=== PATIENT | male | born 1965 | race Caucasian/White ===

== ENCOUNTER 2019-09-23 10:15 | Inpatient (IN) ==
--- NOTE | 2019-09-07 15:47 | PAT Medication Instructions ---
Medication Instructions Date of Service September 07, 2019 Home Medications Taylor Extract 1,200 mg PO QAM acetaminophen [Tylenol] 325 mg PO QID PRN cetirizine [Allergy Relief (cetirizine)] 10 mg PO QAM dexlansoprazole [Dexilant] 60 mg PO QAM levothyroxine 125 mcg PO QAM STOP taking 2 weeks before surgery (or as soon as possible if surgery is within 2 weeks) Taylor Extract 1,200 mg PO QAM DO NOT take the morning of surgery cetirizine [Allergy Relief (cetirizine)] 10 mg PO QAM Take morning of surgery With a small sip of water, OTHERWISE NOTHING TO EAT OR DRINK AFTER MIDNIGHT: acetaminophen [Tylenol] 325 mg PO QID PRN (okay to take up to 4 hours prior to surgery if needed) dexlansoprazole [Dexilant] 60 mg PO QAM levothyroxine 125 mcg PO QAM Take evening before surgery acetaminophen [Tylenol] 325 mg PO QID PRN (if needed) Other Notes If you have any questions please call us at [phone] or [phone] or [phone] or [phone]
--- NOTE | 2019-09-08 09:45 | Anesthesiology Consultation ---
Date of Service September 08, 2019 Assessment & Plan (1) Encounter for pre-operative examination: S/P L shoulder scope 2015 [facility] = MAC 4, ETT 8.0, GV II. EZ MASK. Chart Review Chart Review: Acceptable Risk for Surgery (pending surgeon-ordered PCP clearance) and Patient seen in Pre Admission Testing Teaching & Discussion Instructed NPO after midnight before surgery, except medications with 15 cc of water. Medication instructions provided according to the PAT guidelines. History Surgery Operation Date: 09/23/19 07:00 Proposed Procedures p Right Total Shoulder Arthroplasty - Cullen Lopes MD Height/Weight Height: 6 ft 1 in Weight: 168.9 kg Allergies Allergy/AdvReac Type Severity Reaction Status Date / Time No Known Allergies Allergy Unverified 09/01/19 08:27 Medications Home Medications Medication Instructions Recorded Confirmed Last Taken Taylor Extract 1,200 mg PO QAM 09/01/19 09/01/19 Unknown acetaminophen [Tylenol] 325 mg PO QID PRN 09/01/19 09/01/19 Unknown cetirizine [Allergy Relief 10 mg PO QAM 09/01/19 09/01/19 Unknown (cetirizine)] dexlansoprazole [Dexilant] 60 mg PO QAM 09/01/19 09/01/19 Unknown levothyroxine 125 mcg PO QAM 09/01/19 09/01/19 Unknown Past Medical History Medical History GERD (gastroesophageal reflux disease) Gout HX OF IN BIG TOE Hypothyroidism Morbid obesity Osteoarthritis Sleep apnea CPAP - INSTRUCTED TO BRING Exercise / Class Metabolic Activity II 4-5 Yardwork/Stairs/Walk up hill (denies CP or SOB with 1 FOS) Past Surgical History Surgical History History of arthroplasty of left shoulder PARTIAL REPLACEMENT 2015 History of arthroscopy of left shoulder Hx of appendectomy Hx of esophagogastroduodenoscopy Hx of tonsillectomy Past Anesthesia History No Hx of Anesthesia Complications and No Family Hx of Anesthesia Complications History of PONV No Hx of PONV and Hx of Motion Sickness (sea sick, but no car sickness) Social History Smoking Status: Never smoker Do You Dip or Chew Tobacco: No Hx Alcohol Use: No Hx Substance Use: No substance use type: does not use Review of Systems Pt denies any recent chest pain, shortness of breath, palpitations, fever or URI. +occ mild nonproductive cough Physical Exam Vital Signs BP: 142/93 (has PTSD around hospitals) P: 72bpm SPO2: 95% RA T: 97.8 F R: 16 Constitutional + morbidly obese ENMT Mouth: + dental restorations (possibly one molar, pt unsure); no chipped teeth and no loose teeth Thyromental Distance: > or= 3.5 Finger Breadths (3.5) Mallampati Class: II Neck + short neck, + thick neck and + facial hair (very short jason, pt amenable to shaving prior to surgery); neck extension not limited Respiratory normal respiratory effort Auscultation: lungs clear to auscultation bilaterally Cardiovascular Rate/Rhythm: regular rate and regular rhythm Heart Sounds: no murmur Extremities: no edema Testing Laboratory Results 09/08/19 09:55 09/08/19 09:55 PT 10.5 Seconds (9.0-12.0) 09/08/19 09:55 INR 1.0 (0.9-1.1) 09/08/19 09:55 APTT 27.0 Seconds (21.0-31.0) 09/08/19 09:55 Hemoglobin A1c 6.0 % (4.5-5.6) H 09/08/19 09:55 Urine Color Yellow 09/08/19 09:55 Urine Appearance Clear (Clear) 09/08/19 09:55 Urine pH 5.5 (4.5-7.5) 09/08/19 09:55 Ur Specific Hudson 1.022 (1.000-1.030) 09/08/19 09:55 Urine Protein Trace (Negative) H 09/08/19 09:55 Urine Glucose (UA) Negative (Negative) 09/08/19 09:55 Urine Ketones Negative (Negative) 09/08/19 09:55 Urine Nitrite Negative (Negative) 09/08/19 09:55 Ur Leukocyte Esterase Negative (Negative) 09/08/19 09:55 Urine WBC (Auto) 1-5 /hpf (0-5) 09/08/19 09:55 Urine RBC (Auto) 0-4 /hpf (0-4) 09/08/19 09:55 U Hyaline Cast (Auto) 1-5 /lpf (0-5) 09/08/19 09:55 U Epithel Cells (Auto) >30 /lpf (0-5) H 09/08/19 09:55 Urine Bacteria (Auto) 1+ (Negative) H 09/08/19 09:55 Blood Type B Positive 09/08/19 09:55 Antibody Screen NEGATIVE 09/08/19 09:55 Electrocardiogram Date: 09/08/19 Findings: + NSR @ (75bpm) Chest X-Ray Date: 09/08/19 Findings: + NAD
--- NOTE | 2019-09-08 10:33 | XRay Report ---
XR chest Pre-admission PA/Lat CLINICAL HISTORY: pat preoperative COMPARISON STUDY: 04/17/2016 FINDINGS: The bones soft tissues and hemidiaphragms are normal. The cardiomediastinal silhouette is n ormal. The lungs are clear. The pulmonary vasculature is normal. IMPRESSION: Negative chest. ACT 112: Negative or not required by law. The above report was generated using voice recognition software. It may contain grammatical, syntax or spelling errors. Electronically signed by: Ayden Vázquez M.D. 09/08/2019 10:32 AM
[2019-09-08 12:00] LABS: Basophils # (auto) 0.02 K/uL (0-0.2); Basophils % (auto) 0.2 %; Eosinophils # (auto) 0.13 K/uL (0-0.5); Eosinophils % (auto) 1.5 %; Hematocrit (blood only) 48.6 % (42-52); Hemoglobin 16.2 g/dL (14.0-18.0); Immature Granulocytes # (auto) 0.01 K/uL (0.00-0.02); Immature Granulocytes % (auto) 0.1 %; Lymphocytes # (auto) 2.78 K/uL (1.2-3.4); Lymphocytes % (auto) 32.7 %; Mean Corpuscular Hemoglobin 30.2 pg (25-34); Mean Corpuscular Hgb Conc 33.3 g/dL (32-36); Mean Corpuscular Volume 90.7 fL (80-100); Monocytes # (auto) 0.58 K/uL (0.11-0.59); Monocytes % (auto) 6.8 %; Neutrophils # (auto) 4.97 K/uL (1.4-6.5); Neutrophils % (auto) 58.7 %; Platelet Count 211 K/uL (130-400); RDW Coefficient of Variation 14.3 % (11.5-14.5); RDW Standard Deviation 47.1 fL (36.4-46.3); Red Blood Count 5.36 M/uL (4.7-6.1); White Blood Count 8.49 K/uL (4.8-10.8)
[2019-09-08 12:03] LABS: Estimated Average Glucose 126 mg/dl
[2019-09-08 12:04] LABS: Appearance Urine Clear (Clear); Bacteria Urine Automated 1+ (Negative); Bilirubin Urine Negative (Negative); Blood Urine Negative (Negative); Color Urine Yellow; Epithelial Cell Urine Auto >30 /lpf (0-5); Glucose Urine UA Negative (Negative); Ketones Urine Negative (Negative); Leukocyte Esterase Urine Negative (Negative); Nitrite Urine Negative (Negative); Protein Urine Trace (Negative); RBC Urine Automated 0-4 /hpf (0-4); Specific Gravity Urine 1.022 (1.000-1.030); Urobilinogen Urine Negative (Negative); pH Urine 5.5 (4.5-7.5)
[2019-09-08 12:17] LABS: Prothrombin Time 10.5 Seconds (9.0-12.0)
[2019-09-08 12:20] LABS: Albumin Level 3.9 gm/dl (3.4-5.0); BUN Creatinine Ratio 18.5 (10-20); Calcium 9.2 mg/dl (8.5-10.1); Creatinine Clr Calc Pharmacy 145.2 ml/min; Est GFR (African American) 104.8; Est GFR (Non-African American) 90.4; Potassium 4.6 mmol/L (3.5-5.1)
--- NOTE | 2019-09-08 15:01 | Electrocardiogram Report ---
Test Reason : Blood Pressure : / mmHG Vent. Rate : 075 BPM Atrial Rate : 075 BPM P-R Int : 152 ms QRS Dur : 100 ms QT Int : 420 ms P-R-T Axes : 033 069 043 degrees QTc Int : 469 ms Normal sinus rhythm Normal ECG When compared with ECG of 17-APR-2016 14:50, No significant change was found Confirmed by Gamaliel Brown ([id number]) on 09/08/2019 3:01:07 PM Referred By: Cullen Lopes Confirmed By:Cody Brown
--- NOTE | 2019-09-22 15:20 | History and Physical Report ---
DATE OF ADMISSION: 09/23/2019 CHIEF COMPLAINT: Chronic right shoulder pain. HISTORY OF PRESENT ILLNESS: The patient is a 53-year-old male patient of Dr. Lopes'elia complaining of chronic right shoulder pain for approximately 3 years, now getting worse. The patient has failed conservative treatment and has been diagnosed with end-stage osteoarthritis per clinical and radiographic exams. The patient wishes to proceed with a right total shoulder arthroplasty. PAST MEDICAL HISTORY: Sleep apnea with the use of CPAP, hypothyroidism, acid reflux, obesity. SOCIAL HISTORY: Nonsmoker, nondrinker. PAST SURGICAL HISTORY: Left shoulder hemiarthroplasty, appendectomy, left shoulder arthroscopy. FAMILY HISTORY: Noncontributory. REVIEW OF SYSTEMS: Chronic right shoulder pain and decreased function. Otherwise, denies any shortness of breath, chest pain, nausea, vomiting or any other joint complaints. MEDICATIONS: 1. Synthroid 125 mcg daily. 2. Dexilant 1 capsule every day for 8 weeks. 3. Zyrtec 10 mg daily. ALLERGIES: No known drug allergies. PHYSICAL EXAMINATION: GENERAL: Well-developed, well-nourished 53-year-old male in no acute distress. He is alert and oriented x3 and pleasant. HEENT: Normocephalic, atraumatic. Extraocular motions are intact. Pupils are equal and reactive to light. HEART: Regular rate and rhythm, no murmurs. LUNGS: Clear. ABDOMEN: Soft, nontender, bowel sounds present. EXTREMITIES: Right shoulder active range of motion was 0-160, passively to 170. He has 5/5 strength with crepitation and pain. Neurologically and neurovascularly, he is intact in his right upper extremity. DIAGNOSES: Right shoulder end-stage osteoarthritis, sleep apnea with the use of CPAP, hypothyroidism, acid reflux, and obesity. PLAN: The patient was advised of his diagnosis. Indications, risks, benefits, postop course have all been reviewed. The patient wished to proceed with right total shoulder arthroplasty. Necessary consent forms, preoperative testing and clearances will be obtained.
[~2019-09-23 10:15] MED LIST: ACETAMINOPHEN 500 MG TAB PO SCH; BUPIVACAINE/EPINEPHRINE 0.25% 1:200,000 30 ML VIAL ONE; CEFAZOLIN 3000MG 72.5 ML IV SCH; CeleBREX 200 MG CAP PO SCH; FAMOTIDINE 20 MG TAB PO SCH; GABAPENTIN 900 MG DOSE PO SCH; LR 15ML/HR IV SCH; METOCLOPRAMIDE HCL 10 MG TABLET PO SCH; MIDAZOLAM HCL 1 MG/ML 2ML VIAL ONE; dexAMETHasone 4 MG TAB PO SCH; fentaNYL citrate 100 MCG/2 ML VIAL ONE
--- NOTE | 2019-09-23 10:33 | History & Physical Bridge Note ---
Date of Service September 23, 2019 History & Physical Bridge Note I have examined the patient, reviewed the History & Physical and in the interval since the performance of the History & Physical I have noted the following changes of clinical significance: no changes noted
[2019-09-23] MEDS ORDERED: PROPOFOL IV EMULSION 10 MG/ML 20 ML VIAL IV ONE (11:00)
[2019-09-23] MEDS ORDERED: ROCURONIUM BROMIDE 10 MG/ML 5 ML VIAL ONE ×3 (11:01→13:12)
[2019-09-23] MEDS ORDERED: LIDOCAINE HCL 2% 2 ML VIAL/AMP(20MG/ML) INFIL ONE (11:01)
[2019-09-23] MEDS ORDERED: EpINEphrine HCL INJ 1 MG/ML 1ML SYRINGE ONE (11:01)
[2019-09-23] MEDS ORDERED: BACITRACIN INJ 50,000 UNIT VIAL ONE (11:01)
[2019-09-23] MEDS ORDERED: ePHEDrine sulfate 50 MG/ML AMP IV PRN (11:09)
[2019-09-23] MEDS ORDERED: HYDROmorphone INJ 2 MG/ML SYR/VIAL IV PRN (11:09)
[2019-09-23] MEDS ORDERED: ATROPINE SULFATE 0.1 MG/ML 10ML SYR IV PRN (11:09)
[2019-09-23] MEDS ORDERED: ONDANSETRON INJ 2 MG/ML 2 ML VIAL IV PRN ×2 (11:09→17:05)
[2019-09-23] MEDS ORDERED: fentaNYL citrate 100 MCG/2 ML VIAL IV PRN (11:09)
[2019-09-23] MEDS ORDERED: GLYCOPYRROLATE 0.2 MG/ML VIAL ONE (15:29)
[2019-09-23] MEDS ORDERED: NEOSTIGMINE METHYLSULFATE 5 MG/5 ML SYR ONE (15:29)
--- NOTE | 2019-09-23 15:55 | Post Operative Brief Note ---
Immediate Post Op Note v1 Date of Surgery September 23, 2019 Pre & Post Diagnosis Operation Date: 09/23/19 12:50 Pre-Op Diagnosis: Primary Osteoarthritis, glenoid bone loss, right Shoulder, morbid obesity BMI 48.8 Post-Op Diagnosis: Primary Osteoarthritis, Right Shoulder biceps tendinopathy, and biceps tenosynovitis, morbid obesity BMI 48.8 I identified the patient and participated in the time-out.: Yes Procedure Operation Date: 09/23/19 12:50 Actual Procedures p Right Total Shoulder Arthroplasty, biceps tenodesis(Right), increased difficulty morbid obesity BMI 48.8- Cullen Lopes MD Surgeon Cullen Lopes MD Stacker And Sorter Operator [place] HILL Estimated Blood Loss 100 Findings Consistent with Post-Op Diagnosis Specimens Humeral head Drains Hemovac Drain Anesthesia Type General Regional Complications none Disposition Accompanied Patient To Recovery: No Disposition: Recovery Room Overlapping Procedure I was immediately available: during the entire case.
--- NOTE | 2019-09-23 16:16 | Operative Report ---
Post Operative Report Pre & Post Diagnosis Operation Date: 09/23/19 12:50 Pre-Op Diagnosis: Primary Osteoarthritis with glenoid bone loss right Shoulder, morbid obesity BMI 48.8 Post-Op Diagnosis: Primary Osteoarthritis with glenoid bone loss right Shoulder, morbid obesity BMI 48.8, Right biceps tendinopathy and tenosynovitis I identified the patient and participated in the time-out.: Yes Procedure Operation Date: 09/23/19 12:50 Actual Procedures p Right Total Shoulder Arthroplasty, biceps tenodesis, increased difficulty morbid obesity BMI 48.8 (Right) - Cullen Lopes MD Surgeon Cullen Lopes MD Signing Teacher [place] HILL Estimated Blood Loss 100 Findings Consistent with Post-Op Diagnosis Specimens Humeral head Drains 2 Hemovac Anesthesia Type General Regional Complications none Disposition Accompanied Patient To Recovery: No Disposition: Recovery Room Indications 53-year-old male with severe osteoarthritis of the right shoulder. Radiographs and CT scan demonstrate severe end-stage glenohumeral osteoarthritis [id number] with posterior glenoid wear with B2 type glenoid and posterior glenoid bone loss intact rotator cuff. Description of Procedure The patient was taken to the operating room and anesthetized under a general and regional block anesthesia. A towel roll was placed under the medial border of the scapula of the right shoulder. The patient's head was placed on a foam headrest and protective eyewear was placed and the extremities were well padded. The arm was draped free in order to manipulate the shoulder as necessary. The shoulder exam demonstrated very obese arm with very limited range of motion. There was 0 degrees of external rotation 80 degrees of abduction 120 degrees forward elevation. The shoulder was sterilely prepped and draped in the usual sterile fashion. An anterior deltopectoral approach was performed. A longitudinal incision was made in the interval. The skin was incised sharply and subcutaneous tissues dissected down to the fascia. The cephalic vein was identified and retracted laterally with the deltoid. Any crossing veins were tied off with silk ties and divided. The clavipectoral fascia was divided at the lateral margin of the conjoined tendon and divided up to the level of the coracoacromial ligament which was preserved. The upper 1 cm of the pectoralis was released for inferior exposure. The biceps tendon findings demonstrated large bicipital groove bone spurs marked tenosynovitis with a large inflammatory response over the biceps tendon with thickened tenosynovium and biceps tendinopathy . The rotator cuff tendon findings demonstrated intact rotator cuff with subacromial bursitis. Patient was obese we did have some excess fat in the bursa overlying the subscapularis tendon. This was all removed.. The circumflex vessels were identified and tied off with silk ties and divided laterally. The fibers and subscapularis were split longitudinally at the level of the circumflex vessels down to the capsule and then reflected off the inferior capsule using a Kitner elevator. The axillary nerve was identified with a tug test and protected with a blunt Reynaldo retractor. The rotator interval was opened up and extended down to the glenoid. The biceps tendon was identified a thorough tenosynovectomy was performed removing all the inflamed tenosynovium tissue the bone spurs and bicipital groove were resected with a rongeur and the biceps was tenodesed to the pectoralis tendon with [id number] #2 FiberWire sutures in the proximal biceps was resected. The subscapularis tendon was taken down with a trans-tendinous incision leaving a cuff of tissue for repair on the lesser tuberosity. The incision was carried down to the tendon and the capsule and a #1 Vicryl suture was placed into the free end of the subscapularis tendon. The capsule was subperiosteally dissected off the inferior neck of the humerus exposing the humeral osteophytes which demonstrated typical inferior jason like osteophytes from anterior to posterior and some adjacent to the subscap tendon some superior. The humeral head had severe erosion with some of the erosion below the cortical bone and flattening of the head and eburnated bone essentially no articular cartilage remaining. The osteophytes were excised with an artist chisel and a rongeur. The capsular release along the inferior neck of the humerus was completed. The humerus was then retracted posterior to the glenoid with a Fukuda retractor. The remainder of the biceps tendon and labrum was resected. The glenoid findings demonstrated B2 type glenoid stills small rim of cartilage anterior superiorly there was a large anterior glenoid osteophyte and the posterior glenoid was angled due to wear posteriorly. I did an anterior inferior and posterior inferior release with electrocautery on bone and a Dubon elevator with the axillary nerve continuing to be protected with the blunt Hohmann retractor inferiorly. When the releases were completed and the humeral head was exposed with some extension and external rotation and in anatomic head cut was made using the oscillating saw. The Tornier simplicity total shoulder arthroplasty was used including the Cortiloc pegged augmented perform glenoid component. Attention was first taken to preparation of the humeral surface. The humeral surface was sized for the size 3 nucleus after which the central pin was placed followed by the reamer followed by the central boss reamer followed by the trial stem and the cut protector. The humerus was then retracted posterior to the glenoid using a Bankart retractor anteriorly and blunt Reynaldo and posterior Tornier glenoid retractor. A central drill hole was made into the glenoid using the CT preoperative templating custom pin placement guide. The glenoid was sized for a size small 40 radius 25 degree augmented glenoid.the angelika and paleo reamers were used for the glenoid followed by the drill for the boss followed by the peripheral peg hole placement. a trial component was placed with a tight fit. The trial was removed and the glenoid was irrigated with pulsatile lavage antibiotic solution and the drill holes were dried and packed with epinephrine- soaked tampons for hemostasis. The Palacos G cement was vacuum mixed. The final component was cemented into position and held in position with pressure until the cement cured. A humeral head trial was placed. A trial reduction was performed and the shoulder was stable. The trial was removed and the humerus and canal were irrigated with antibiotic solution with bacitracin. 3 drill holes were made into the hard bone in the bicipital groove lateral to the lesser tuberosity and 3 #5 FiberWire transosseous sutures were placed for repair of the subscapularis. After further irrigation of the humeral cut surface , the final components were inserted. The simplicity nucleus size 3 was impacted into the humerus with a good press-fit leaving it a few millimeters proud and then the 52 x 19 humeral head was impacted into the nucleus and the nucleus fully seated seating both components anatomically into the humerus with a tight press-fit. The humerus was reduced to the glenoid and stability verified The subscapularis was repaired with the #5 FiberWire sutures in a Man-Baljinder suture technique and lateral row fixation with [id number] #2 FiberWire in the soft tissue. The rotator interval was closed and maximal external rotation. Range of motion was checked and there was no undue tension on repair through 140 degrees of flexion 90 degrees abduction and 20 degrees of external rotation. The pectoralis was then closed with [id number] #2 FiberWire suture. The sutures were passed through the biceps tendon as well to reinforce the biceps tenodesis. 2 Hemovac drains were placed. The deltopectoral interval was closed with [id number] #1 Vicryl sutures. The subcutaneous tissues were closed with interrupted 2-0 Vicryl and the skin was closed with raine and a sterile dressing was applied. The patient tolerated the procedure well. There was increased level difficulty with exposure of the glenoid adding at least 45 minutes of the length of the procedure due to his morbid obesity and large size. [place] HILL my physician human resources office assistant, assisted in soft tissue retraction instrument management suture management and assisted in the subcutaneous and skin closure and will participate in the postoperative care the patient. I attest to the content of the Intraoperative Record and any orders documented therein. Any exceptions are noted below.
--- NOTE | 2019-09-23 16:24 | XRay Report ---
XR shoulder RT min 2V routine CLINICAL HISTORY: 53 years-old Male presenting with Post shoulder surgery. TECHNIQUE: Frontal and transscapular Y views of the right shoulder were obtained. COMPARISON: Correlation made to chest x-ray from 09/08/2019. FINDINGS: There has been interval right shoulder arthroplasty. No malalignment. No unexpected periprosthetic ra diolucency. No fracture. Mild hypertrophic degenerative changes at the acromioclavicular joint, which is congruent. Surgical drain in place. Overlying skin raine. Expected soft tissue emphysema. IMPRESSION: Expected postsurgical appearance status post right shoulder arthroplasty. ACT 112: Negative or not required by law. Electronically signed by: Clive Delong M.D. 09/23/2019 4:22 PM
[2019-09-23] MEDS ORDERED: LABETALOL HCL IV 5 MG/ML 20ML IV ONE (16:25)
[2019-09-23] MEDS ORDERED: LABETALOL HCL IV 5 MG/ML 20ML IV PRN (16:28)
--- NOTE | 2019-09-23 16:51 | Anesthesiology Progress Note ---
Date of Service September 23, 2019 Anesthesia Post Procedure Vital Signs Vital Signs: Temp Pulse Resp BP Pulse Ox 09/23/19 16:40 36.9 C 83 12 146/94 H 94 09/23/19 16:30 36.9 C 84 12 144/93 H 96 09/23/19 16:20 93 H 21 160/102 H 95 09/23/19 16:10 94 H 22 156/111 H 94 09/23/19 16:00 98 H 22 151/105 H 98 09/23/19 15:52 36.9 C 101 H 22 152/103 H 92 09/23/19 10:46 36.8 C 85 20 148/101 H 94 Pain Intensity Left Shoulder: Pain Intensity: 3 Transfer of Care Handoff Completed per policy Notes Mental Status: alert / awake / arousable Patient Amnestic to Procedure: Yes Nausea / Vomiting: adequately controlled Pain: adequately controlled Airway Patency, RR, SpO2: stable & adequate BP & HR: stable & adequate Hydration State: stable & adequate Anesthetic Complications: no major complications apparent and Pt Satisfied with anesthetic care
[2019-09-23] MEDS ORDERED: HYDROmorphone INJ 0.5 MG/0.5 ML SYR IV PRN (17:05)
[2019-09-23] MEDS ORDERED: bisacodyL 10 MG SUPP PR PRN (17:05)
[2019-09-23] MEDS ORDERED: NALOXONE HCL 0.4 MG/1 ML VIAL/CARP IV PRN (17:05)
[2019-09-23] MEDS ORDERED: OXYCODONE HCL IR 5 MG TAB (IMMEDIATE RELEASE) PO PRN (17:05)
[2019-09-23] MEDS ORDERED: METOCLOPRAMIDE HCL INJ 5 MG/ML 2 ML VIAL IV PRN (17:05)
[2019-09-23] MEDS ORDERED: MAGNESIUM HYDROXIDE SUSP 30 ML UDC PO PRN (17:05)
[2019-09-23] MEDS: SODIUM CHLORIDE 0.9% 1000ML 1,000 ML IV SCH (17:19)
[2019-09-23] MEDS ORDERED: OXYCODONE/ACETAMINOPHEN 5mg/325mg TAB PO PRN (18:42)
--- NOTE | 2019-09-23 18:47 | Hospitalist Consultation ---
Date of Consultation September 23, 2019 Assessment & Plan (1) DJD of left shoulder: as per ortho s/p R total shoulder on 09/22 (2) Hypothyroidism: continue home meds (3) GERD (gastroesophageal reflux disease): continue home meds (4) Sleep apnea: home CPAP (5) Elevated hemoglobin A1c: A1c 6.0 on pre-op labs No hx of DM States they have cut out flour and sugar recently (6) DVT prophylaxis: As per ortho History of Present Illness Attending Physician: Cullen Lopes MD History of Present Illness 53 y/o M who was admitted on 09/22 s/p R total shoulder with Dr. Lopes. Pt is doing well post-op. He has some pain to the shoulder, but feels it is manageable. Has not been given PO yet, but no n/v post-op. Pt denies fever, SOB, chest pain, abd pain, c/d, LE swelling or pain, urinary sx. Pt had a bad reaction to oxycodone in the past and would like to avoid this if possible. He has never had percocet or vicodin to his knowledge. Allergies Allergy/AdvReac Type Severity Reaction Status Date / Time No Known Allergies Allergy Verified 09/23/19 10:37 Home Medications Home Medications Medication Instructions Recorded Confirmed Type Taylor Extract 1,200 mg PO QAM 09/01/19 09/23/19 History acetaminophen [Tylenol] 325 mg PO QID PRN 09/01/19 09/23/19 History cetirizine [Allergy Relief 10 mg PO QAM 09/01/19 09/23/19 History (cetirizine)] dexlansoprazole [Dexilant] 60 mg PO QAM 09/01/19 09/23/19 History levothyroxine 125 mcg PO QAM 09/01/19 09/23/19 History Patient History Medical History GERD (gastroesophageal reflux disease) Gout HX OF IN BIG TOE Hypothyroidism Morbid obesity Osteoarthritis Sleep apnea CPAP - INSTRUCTED TO BRING Surgical History History of arthroplasty of left shoulder PARTIAL REPLACEMENT 2015 History of arthroscopy of left shoulder Hx of appendectomy Hx of esophagogastroduodenoscopy Hx of tonsillectomy Social History Preferred Language: Armenian Communication Ability: Effective Wallpaperer Required: No Beliefs That Will Affect Care: None Current Living Situation: Spouse Other Information That Helps Us Care for You: No Feels Safe at Home: Yes Safety Concerns: Feels Safe At This Time Smoking Status: Never smoker Do You Dip or Chew Tobacco: No ; Second Hand Exposure: No ; Tobacco Cessation Education Requested by Patient: No Hx Alcohol Use: No Hx Substance Use: No Review of Systems Review of Systems: Pertinent positives and negatives reviewed in HPI--all others negative Physical Exam Constitutional: WD/WN, vitals as above + morbidly obese Eyes: normal visual landin by confrontation and + anicteric sclerae Neck: normal visual inspection and trachea midline Respiratory: normal respiratory effort, lungs clear to auscultation Cardiovascular: Rate/Rhythm: regular rate and regular rhythm Gastrointestinal (Abdomen): Inspection/Auscultation: abdomen not distended Percussion/Palpation: abdomen soft; abdomen nontender Musculoskeletal: Head/Neck/Chest: normocephalic and head atraumatic negative for edema, peripheral pulses intact Skin: no rashes, warm and dry Neurologic: awake; not confused Speech / Cognition: normal speech Psychiatric: A+Ox3, euthymic affect Results & Data ([facility]) Vital Signs (Past 12 Hours) Vital Signs Temp Pulse Pulse Resp BP Pulse Ox 09/23/19 17:58 36.7 C 102 H 18 115/73 93 09/23/19 17:32 36.5 C 95 H 18 134/80 94 09/23/19 16:40 36.9 C 83 12 146/94 H 94 09/23/19 16:30 36.9 C 84 12 144/93 H 96 09/23/19 16:20 93 H 21 160/102 H 95 09/23/19 16:10 94 H 22 156/111 H 94 09/23/19 16:00 98 H 22 151/105 H 98 09/23/19 15:52 36.9 C 101 H 22 152/103 H 92 09/23/19 10:46 36.8 C 85 20 148/101 H 94 Diagnostic Findings CXR: neg for acute PG Care Time/CCT Total # of Minutes Spent Total Time Spent with Patient: Total time spent is greater than 50% in coordination of care (as documented) at patient's floor/unit and/or counseling patient: Coding Level of Care Code 03941 Inpt Consult Level 4 Diagnoses DJD of left shoulder M19.012 Hypothyroidism E03.9 GERD (gastroesophageal reflux disease) K21.9 Sleep apnea G47.30 Elevated hemoglobin A1c R73.09 DVT prophylaxis Z29.9
[2019-09-23] MEDS ORDERED: KETOROLAC 30 MG/ML VIAL ONE (19:21)
[2019-09-23] MEDS: KETOROLAC 30 MG/ML VIAL IV PRN (19:55)
[2019-09-23] MEDS: DOCUSATE SODIUM 100 MG CAP PO SCH (20:39)
[2019-09-23] MEDS: ASPIRIN 81 MG ECTAB PO SCH (20:39)
[2019-09-23] MEDS: SENNA 8.6 MG TAB PO SCH (20:39)
[2019-09-23] MEDS: CEFAZOLIN 2000MG 2,000 MG/15 ML SYR IV SCH (20:39)
[2019-09-23] MEDS: ACETAMINOPHEN 500 MG TAB PO SCH (21:11)
[2019-09-24] MEDS: CEFAZOLIN 2000MG 2,000 MG/15 ML SYR IV SCH (03:21)
[2019-09-24] MEDS: SODIUM CHLORIDE 0.9% 1000ML 1,000 ML IV SCH (03:22)
[2019-09-24] MEDS: LEVOTHYROXINE SODIUM 125 MCG TABLET PO SCH (05:30)
[2019-09-24] MEDS: ACETAMINOPHEN 500 MG TAB PO SCH (05:30)
[2019-09-24 05:58] LABS: Basophils # (auto) 0.01 K/uL (0-0.2); Basophils % (auto) 0.1 %; Eosinophils # (auto) 0.01 K/uL (0-0.5); Eosinophils % (auto) 0.1 %; Hematocrit (blood only) 43.6 % (42-52); Hemoglobin 14.5 g/dL (14.0-18.0); Immature Granulocytes # (auto) 0.03 K/uL (0.00-0.02); Immature Granulocytes % (auto) 0.2 %; Lymphocytes # (auto) 2.53 K/uL (1.2-3.4); Lymphocytes % (auto) 18.4 %; Mean Corpuscular Hemoglobin 30.7 pg (25-34); Mean Corpuscular Hgb Conc 33.3 g/dL (32-36); Mean Corpuscular Volume 92.2 fL (80-100); Mean Platelet Volume 12.5 fL (7.4-10.4); Neutrophils # (auto) 10.08 K/uL (1.4-6.5); Neutrophils % (auto) 73.2 %; Platelet Count 225 K/uL (130-400); RDW Coefficient of Variation 14.4 % (11.5-14.5); RDW Standard Deviation 48.3 fL (36.4-46.3); Red Blood Count 4.73 M/uL (4.7-6.1); White Blood Count 13.76 K/uL (4.8-10.8)
[2019-09-24 06:24] LABS: BUN Creatinine Ratio 19.5 (10-20); Calcium 8.1 mg/dl (8.5-10.1); Creatinine Clr Calc Pharmacy 133.5 ml/min; Potassium 3.7 mmol/L (3.5-5.1)
[2019-09-24] MEDS ORDERED: KETOROLAC 30 MG/ML VIAL IV PRN (08:00)
--- NOTE | 2019-09-24 08:06 | Anesthesiology Progress Note ---
Date of Service September 24, 2019 Anesthesia Post Procedure Vital Signs Vital Signs: Temp Pulse Pulse Pulse Resp BP Pulse Ox 09/24/19 07:30 36.6 C 79 20 130/85 94 09/24/19 04:06 36.6 C 76 20 123/79 93 09/23/19 23:37 36.8 C 96 H 24 116/77 92 09/23/19 20:17 36.5 C 114 H 20 142/84 H 90 09/23/19 19:01 36.7 C 111 H 20 126/60 91 09/23/19 17:58 36.7 C 102 H 18 115/73 93 09/23/19 17:32 36.5 C 95 H 18 134/80 94 09/23/19 16:40 36.9 C 83 12 146/94 H 94 09/23/19 16:30 36.9 C 84 12 144/93 H 96 09/23/19 16:20 93 H 21 160/102 H 95 09/23/19 16:10 94 H 22 156/111 H 94 09/23/19 16:00 98 H 22 151/105 H 98 09/23/19 15:52 36.9 C 101 H 22 152/103 H 92 09/23/19 10:46 36.8 C 85 20 148/101 H 94 Pain Intensity Left Shoulder: Pain Intensity: 3 Notes Mental Status: alert / awake / arousable and participated in evaluation Patient Amnestic to Procedure: Yes Nausea / Vomiting: adequately controlled Pain: adequately controlled Airway Patency, RR, SpO2: stable & adequate BP & HR: stable & adequate Hydration State: stable & adequate Anesthetic Complications: no major complications apparent and Pt Satisfied with anesthetic care
[2019-09-24] MEDS: DOCUSATE SODIUM 100 MG CAP PO SCH ×2 (08:20→20:21)
[2019-09-24] MEDS: MULTIVITAMIN TAB PO SCH (08:20)
[2019-09-24] MEDS: ASPIRIN 81 MG ECTAB PO SCH ×2 (08:20→20:21)
[2019-09-24] MEDS: CETIRIZINE HCL 10 MG TABLET PO SCH (08:21)
--- NOTE | 2019-09-24 10:01 | Orthopedic Progress Note ---
Date of Service September 24, 2019 Assessment & Plan (1) Arthritis of right shoulder region: POD #1, Right TSA, Biceps Tenodesis PT/ OT DVT proph- ASA D/C plans - Home w OPPT As per medicine Admission and Anticipated Discharge Date Admission Date: September 23, 2019 Subjective POD #1, Feeling well. Denies SOB, CP, N/V Pain controlled well so far today. Physical Exam Physical Exam: Right shoulder dressings c/d/i. no drainange. Fingers mobile. Sling in tact. A&Ox3. Results & Data ([facility]) Vital Signs (Past 12 Hours) Vital Signs Temp Pulse Resp BP Pulse Ox 09/24/19 07:30 36.6 C 79 20 130/85 94 09/24/19 04:06 36.6 C 76 20 123/79 93 09/23/19 23:37 36.8 C 96 H 24 116/77 92
[2019-09-24] MEDS: HYDROCODONE/ACETAMINOPHEN 10/325 TAB PO PRN (11:31)
[2019-09-24] MEDS: KETOROLAC 30 MG/ML VIAL IV PRN ×3 (12:20→23:26)
--- NOTE | 2019-09-24 14:05 | Hospitalist Progress Note ---
Date of Service September 24, 2019 Assessment & Plan (1) DJD of left shoulder: * POD #1 s/p RIGHT total shoulder with Dr. Lopes. EBL 100mL. Pre-op h/h 16.2/48.6 * H/h stable at 14.5/43.6 * PT/OT/Pain management/DVT prophylaxis per primary team * Plan for d/c with OPPT tomorrow per primary team (2) Hypothyroidism: * Chronic. Continue home levothyroxine 125mcg daily (3) GERD (gastroesophageal reflux disease): * Chronic. On dexlansoprazole outpatient --> will give protonix while inpatient * Rec home meds at discharge (4) Sleep apnea: * Home CPAP (5) Elevated hemoglobin A1c: * A1c 6.0 on pre-op labs without prior hx DM. No family history. Have recently made dietary changes including limiting flour and sugar * Follow up with PCP as outpatient -- morning glucose on BMP at 120 (6) Seasonal allergies: * Chronic. Stable. Continue home zyrtec 10mg (7) DVT prophylaxis: * As per ortho-- ASA 81mg BID Thank you for allowing hospitalist team to participate in the care of Mr. Durbin. Medicine will sign off. Please do not hesitate to reach out with any questions/concerns. Admission and Anticipated Discharge Date Admission Date: September 23, 2019 Supervising Physician Co-Signing Physician Notes PA Supervision Note: I did not personally see or examine the patient today, but I verified all coelho points of LIZ Coelho's assessment and plan with the following exceptions/additions: None Subjective Patient doing well. Pain tolerable with pain medications. Passing gas, no BM yet. Eating and drinking without difficulty. Plans for discharge with outpatient physical therapy tomorrow. Denies chest pain, shortness of breath, abdominal pain, fever, chills, dysuria at this time. Review of Systems Review of Systems: All systems reviewed & are unremarkable except as noted in HPI & below Physical Exam Constitutional: WD/WN, vitals as above + obese; no acute distress Eyes: + anicteric sclerae and PERRL ENMT: Ears: no hearing impairment Nose: no external nose abnormality Neck: trachea midline, no thyromegaly Respiratory: normal respiratory effort, lungs clear to auscultation Cardiovascular: RRR, no murmur, no edema Gastrointestinal (Abdomen): normal bowel sounds, soft, nontender, no hepatosplenomegaly Musculoskeletal: no cyanosis or clubbing, extremities motor strength 5/5 sling to RIGHT arm 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 Skin: no rashes, warm and dry Hemovac with bloody drainage Results & Data ([facility]) Vital Signs (Past 12 Hours) Vital Signs Temp Pulse Resp BP Pulse Ox 09/24/19 07:30 36.6 C 79 20 130/85 94 09/24/19 04:06 36.6 C 76 20 123/79 93 Laboratory Results 09/24/19 09/24/19 Range/Units 04:59 04:59 WBC 13.76 H (4.8-10.8) K/uL RBC 4.73 (4.7-6.1) M/uL Hgb 14.5 (14.0-18.0) g/dL Hct 43.6 (42-52) % MCV 92.2 (80-100) fL MCH 30.7 (25-34) pg MCHC 33.3 (32-36) g/dL RDW Std Deviation 48.3 H (36.4-46.3) fL RDW Coeff of Sis 14.4 (11.5-14.5) % Plt Count 225 (130-400) K/uL MPV 12.5 H (7.4-10.4) fL Immature Gran % (Auto) 0.2 % Neut % (Auto) 73.2 % Lymph % (Auto) 18.4 % [place] % (Auto) 8.0 % Eos % (Auto) 0.1 % Baso % (Auto) 0.1 % Immature Gran # (Auto) 0.03 H (0.00-0.02) K/uL Neut # (Auto) 10.08 H (1.4-6.5) K/uL Lymph # (Auto) 2.53 (1.2-3.4) K/uL [place] # (Auto) 1.10 H (0.11-0.59) K/uL Eos # (Auto) 0.01 (0-0.5) K/uL Baso # (Auto) 0.01 (0-0.2) K/uL Sodium 139 (136-145) mmol/L Potassium 3.7 (3.5-5.1) mmol/L Chloride 106 (98-107) mmol/L Carbon Dioxide 26 (21-32) mmol/L Anion Gap 7.0 (3-11) BUN 20 H (7-18) mg/dl Creatinine 1.03 (0.6-1.4) mg/dl Est Cr Clr Drug Dosing 133.5 ml/min Est GFR ( Amer) 95.0 Est GFR (Non-Af Amer) 82.0 BUN/Creatinine Ratio 19.5 (10-20) Glucose 120 H (70-99) mg/dl Calcium 8.1 L (8.5-10.1) mg/dl PG Care Time/CCT Total # of Minutes Spent Total Time Spent with Patient: Total time spent is greater than 50% in coordination of care (as documented) at patient's floor/unit and/or counseling patient: Coding Level of Care Code 02960 Subseq Hosp Care Lvl 1 Diagnoses DJD of left shoulder M19.012 Hypothyroidism E03.9 GERD (gastroesophageal reflux disease) K21.9 Sleep apnea G47.30 Elevated hemoglobin A1c R73.09 Seasonal allergies J30.2 DVT prophylaxis Z29.9
[2019-09-24] MEDS: PANTOprazole 40 MG TAB PO SCH (18:34)
[2019-09-24] MEDS: SENNA 8.6 MG TAB PO SCH (20:20)
[2019-09-25] MEDS: LEVOTHYROXINE SODIUM 125 MCG TABLET PO SCH (05:40)
[2019-09-25] MEDS: HYDROCODONE/ACETAMINOPHEN 10/325 TAB PO PRN ×2 (07:32→12:35)
--- NOTE | 2019-09-25 07:48 | Orthopedic Progress Note ---
Date of Service September 25, 2019 Assessment & Plan (1) Arthritis of right shoulder region: POD #2, Right TSA, Biceps Tenodesis PT/ OT DVT proph- ASA D/C plans - Home w OPPT today after lunch if pain controlled on oral pain meds. As per medicine Admission and Anticipated Discharge Date Admission Date: September 23, 2019 Subjective POD #2, Feeling well. Denies SOB, CP, N/V Has been needing toradol regularly and hasnt really used the [place] at this point. States pain was better this AM until dressings were changed. He cannot tolerate oxycodone due to side effects. Physical Exam Physical Exam: Right shoulder dressings c/d/i, no drainage. Fingers mobile. Sling in tact. A&Ox3. N/V+. Results & Data ([facility]) Vital Signs (Past 12 Hours) Vital Signs Temp Pulse Pulse Resp BP Pulse Ox 09/25/19 07:42 37.0 C 80 18 150/104 H 93 09/24/19 23:17 36.5 C 77 18 128/81 96
[2019-09-25] MEDS: PANTOprazole 40 MG TAB PO SCH (08:54)
[2019-09-25] MEDS: MULTIVITAMIN TAB PO SCH (08:54)
[2019-09-25] MEDS: DOCUSATE SODIUM 100 MG CAP PO SCH (08:54)
[2019-09-25] MEDS: ASPIRIN 81 MG ECTAB PO SCH (08:54)
[2019-09-25] MEDS: CETIRIZINE HCL 10 MG TABLET PO SCH (08:55)
--- NOTE | 2019-09-30 11:17 | Discharge Summary (DS) ---
DISCHARGE DIAGNOSIS: Right shoulder osteoarthritis. SECONDARY DIAGNOSES: Sleep apnea with use of CPAP, hypothyroidism, gastroesophageal reflux disease, obesity. CONSULTS: Willa Monroy MD COMPLICATIONS: None. PROCEDURES: Right total shoulder arthroplasty with biceps tenodesis by Dr. Lopes on 09/23/2019. BRIEF HISTORY: As dictated in the history and physical. HOSPITAL SUMMARY: The patient was admitted on the above-noted date and had the above-noted surgery performed, which he tolerated well. Dr. Monroy was consulted for medical management during the patient's stay. On his first postoperative day, he was feeling well and had no complaints. Denied shortness of breath, chest pain or nausea or vomiting. Pain was controlled. Dressings were intact. Fingers were mobile and vital signs were stable. He was afebrile. He was started on PT and OT protocols, continued on DVT prophylaxis and pain management. Planning for discharge to home with outpatient PT. By the second postoperative day, he had been requiring Toradol regularly and had not used his oral medications much. Dressings were intact. Fingers were mobile. Neurovascular was intact. Vital signs were stable. He was afebrile. He was otherwise remaining medically stable as well as orthopedically stable and it was felt he could be discharged to home on 09/25/2019. For further review, please see chart. LABORATORY AND X-RAY DATA: As per chart. DISCHARGE INSTRUCTIONS: The patient was discharged to home in satisfactory condition. DIET: Regular. ACTIVITY: Nonweightbearing on the right upper extremity. Follow total shoulder arthroplasty instructions as written as well as special care instructions as noted. Follow up with Dr. Lopes 12-14 days from the day of surgery. The patient to call for appointment if one has not been made for you. DISCHARGE MEDICATIONS: Aspirin 81 mg p.o. b.i.d., [place] 1 tab p.o. q. 4 hours p.r.n. Resume home meds as listed. Stop taking previous Tylenol dosage.
== END 2019-09-25 13:44 | disposition home or self-care (01) | DRG 483 ==
LOC: ASU 10:15 → 3E 16:05

== ENCOUNTER 2025-04-28 09:13 | Observation (INO) ==
--- NOTE | 2025-03-30 13:03 | PAT Medication Instructions ---
Medication Instructions Date of Service March 30, 2025 Home Medications cetirizine 10 mg tablet (Allergy Relief (cetirizine)) 10 mg PO QAM Alive Calcium-Vitamin D3-K2 1 tab PO DAILY Bio Quercetin 1 cap PO DAILY allopurinol 300 mg tablet 300 mg PO QPM astaxanthin 12 mg capsule 10 mg PO DAILY levothyroxine 150 mcg tablet 150 mcg PO QAM STOP taking 2 weeks before surgery (or as soon as possible if surgery is within 2 weeks) Alive Calcium-Vitamin D3-K2 1 tab PO DAILY Bio Quercetin 1 cap PO DAILY astaxanthin 12 mg capsule 10 mg PO DAILY DO NOT take the morning of surgery cetirizine 10 mg tablet (Allergy Relief (cetirizine)) 10 mg PO QAM Take morning of surgery With a small sip of water, OTHERWISE NOTHING TO EAT OR DRINK AFTER MIDNIGHT: levothyroxine 150 mcg tablet 150 mcg PO QAM Take evening before surgery allopurinol 300 mg tablet 300 mg PO QPM Other Notes If you have any questions please call us at [phone] or [phone] or [phone] or [phone]
--- NOTE | 2025-04-07 13:39 | Anesthesiology Consultation ---
Date of Service April 07, 2025 Assessment & Plan (1) Encounter for pre-operative examination: Chart Review Chart Review: Acceptable Risk for Surgery (pending surgeon ordered PCP clearance ) and Patient seen in Pre Admission Testing - Awaiting surgeon ordered PCP clearance scheduled 04/13/[address] Blankenship in [place] per surgeon's office - Patient is NOT an ideal OPJ candidate due to procedure type (currently 23 hour obs) Per PAT appt on 04/07/25, no recent illness/disease exposures, illness related symptoms, or recent illness/disease positive tests. Will leave to surgeon's discretion if preop Covid testing needed Right Total Shoulder Arthroplasty 09/23/19= Done under [place] with Grade 1 view with MAC #4. ETT #7.5. Easy mask ventilation, atraumatic intubation, lips and teeth as preop Teaching & Discussion Pre-Anesthesia Teaching/Discussion Notes: Instructed NPO after midnight before surgery,except medications with 15 cc of water. Medication instructions provided according to the [facility] guidelines. History Surgery Operation Date: 04/28/25 09:55 Proposed Procedures p Left Shoulder Resurfacin Revised to Reverse Total Shoulder Arthroplasty - Cullen Lopes MD Height/Weight Height: 6 ft 1 in Weight: 138.3 kg Allergies Allergy/AdvReac Type Severity Reaction Status Date / Time oxycodone AdvReac Severe Agitated Verified 03/30/25 09:47 Medications Home Medications Medication Instructions Recorded Confirmed Last Taken cetirizine 10 mg tablet (Allergy 10 mg PO QAM 09/01/19 03/30/25 09/22/19 08:00 Relief (cetirizine)) Alive Calcium-Vitamin D3-K2 1 tab PO DAILY 03/30/25 03/30/25 Unknown Bio Quercetin 1 cap PO DAILY 03/30/25 03/30/25 Unknown allopurinol 300 mg tablet 300 mg PO QPM 03/30/25 03/30/25 Unknown astaxanthin 12 mg capsule 10 mg PO DAILY 03/30/25 03/30/25 Unknown levothyroxine 150 mcg tablet 150 mcg PO QAM 03/30/25 03/30/25 Unknown Past Medical History Medical History (Updated 04/09/25 @ 08:23 by Altagracia Brown PA-C) GERD (gastroesophageal reflux disease) well controlled and stable Gout History of History of GI bleed (2022) hospitalized x 5 days, [facility] [place] Hypothyroidism Morbid obesity Osteoarthritis Seasonal allergies Sleep apnea CPAP Exercise / Class Metabolic Activity II 4-5 Yardwork/Stairs/Walk up hill (one flight of stairs - no chest pain or SOB ) Past Surgical History Surgical History History of arthroplasty of left shoulder PARTIAL REPLACEMENT 2015 History of arthroscopy of left shoulder History of reverse total replacement of right shoulder joint Hx of appendectomy Hx of esophagogastroduodenoscopy Hx of tonsillectomy Past Anesthesia History No Hx of Anesthesia Complications and No Family Hx of Anesthesia Complications History of PONV History of PONV (with "gas anesthesia" at dentist office- no issues x >30 years ; no issues with subsequent surgeries ) and Hx of Motion Sickness (mild) Social History Smoking Status: Never smoker Do You Dip or Chew Tobacco: No Hx Alcohol Use: No Hx Substance Use: No substance use type: does not use Review of Systems - S/p blood transfusion 2022 after GI bleed Patient denies chest pain, shortness of breath, dyspnea on exertion, cough, wheezing, palpitations. No hx of seizures, stroke, OK. No hx of blood clots Physical Exam Vital Signs VITALS BP 137/88 P 81 TEMP 97.9 SP02 95% RESP 16 Constitutional no acute distress ENMT Mouth: no TMJ clicking Thyromental Distance: > or= 3.5 Finger Breadths (3.5) Mallampati Class: I (smaller airway ) Crowns to side teeth and molars Neck + facial hair (advised to shave/trim ); neck extension not limited Respiratory normal respiratory effort; no respiratory distress Auscultation: lungs clear to auscultation bilaterally; no wheezes Cardiovascular Rate/Rhythm: regular rate and regular rhythm Heart Sounds: no murmur Vessels: no carotid bruit Musculoskeletal Spine: no pain with cervical ROM Extremities: extremities normal to inspection Psychiatric Orientation: alert Lab Results Anesthesia Preop Results Results Anesthesia Widget: WBC 9.12 K/ul (4.8-10.8) 04/07/25 Hgb 16.1 g/dl (14.0-18.0) 04/07/25 Hct 48.8 % (42.0-52.0) 04/07/25 Plt 218 K/uL (130-400) 04/07/25 Na 140 mmol/L (136-145) 04/07/25 K 4.5 mmol/L (3.5-5.1) 04/07/25 Cl 103 mmol/L (98-107) 04/07/25 CO2 29 mmol/L (21-32) 04/07/25 BUN 12 mg/dl (6-23) 04/07/25 Creat 0.85 mg/dl (0.6-1.4) 04/07/25 Glucose Level 94 mg/dl (70-99(Fasting)) 04/07/25 PT 11.2 Seconds (9.0-12.0) 04/07/25 PTT 29 Seconds (21-31) 04/07/25 INR 1.0 (0.9-1.1) 04/07/25 Urine Color Yellow 04/07/25 Urine Appearance Clear (Clear) 04/07/25 Urine pH 7.0 (4.5-7.5) 04/07/25 Urine Specific [place] 1.011 (1.000-1.030) 04/07/25 Urine Protein Negative (Negative) 04/07/25 Urine Glucose (UA) Negative (Negative) 04/07/25 Urine Ketones 1+ (Negative) H 04/07/25 Urine Blood Negative (Negative) 04/07/25 Urine Nitrite Negative (Negative) 04/07/25 Urine Bilirubin Negative (Negative) 04/07/25 Urine Urobilinogen Negative (Negative) 04/07/25 Urine Leukocyte Esterase Trace (Negative) H 04/07/25 Urine WBC (Auto) 0-5 /hpf (0-5) 04/07/25 Urine RBC (Auto) 0-2 /hpf (0-2) 04/07/25 Urine Hyaline Casts (Auto) 0-2 /lpf (0-2) 04/07/25 Urine Epithelial Cells (Auto) 3-5 /hpf (0-2) H 04/07/25 Urine Bacteria (Auto) 1+ (None Seen) H 04/07/25 Blood Type B Positive 04/07/25 Antibody Screen NEGATIVE 04/07/25 Testing Laboratory Results Bacteria in UA- surgeon's office informed and will leave to surgeon's discretion with how to proceed Electrocardiogram Date: 04/07/25 Findings: + NSR @ (72bpm) Normal EKG per cardio Chest X-Ray Date: 04/07/25 Findings: + NAD
--- NOTE | 2025-04-27 20:55 | History & Physical Report ---
Date of Service April 27, 2025 Assessment & Plan (1) Chronic shoulder pain: Plan: Chronic left shoulder pain related to bone erosion and rotator cuff tendinopathy status post resurfacing hemiarthroplasty. Plan is revision to a reverse total shoulder replacement. Preoperative CT scan demonstrated too much bone loss even for augmented glenoid component of standard system so a vault reconstruction system with custom implant was made based on repeat CT scan. Laterality: left Qualified Code(s): M25.512 - Pain in left shoulder; G89.29 - Other chronic pain (2) Tendinopathy of left rotator cuff: (3) History of hemiarthroplasty of left shoulder: History of Present Illness Chief Complaint: Chronic left shoulder pain status post hemiarthroplasty resurfacing. Primary Care Provider: Alexandro Blankenship 59-year-old male status post resurfacing hemiarthroplasty of the left shoulder. Patient's had chronic pain due to glenoid bone loss and rotator cuff tendinopathy. Patient denies headaches, sweats, fevers, chills, double vision, blurred vision, cough, sore throat, dysphagia, chest pain, sob, wheezing, n/v/d/c, numbness, tingling, fatigue, urinary symptoms, mood disorders. ROS positive for sleep apnea CPAP use underactive thyroid. Allergies Allergy/AdvReac Type Severity Reaction Status Date / Time oxycodone AdvReac Severe Agitated Verified 03/30/25 09:47 Home Medications Medication Instructions Recorded Confirmed Type cetirizine 10 mg tablet (Allergy 10 mg PO QAM 09/01/19 03/30/25 History Relief (cetirizine)) Alive Calcium-Vitamin D3-K2 1 tab PO DAILY 03/30/25 03/30/25 History Bio Quercetin 1 cap PO DAILY 03/30/25 03/30/25 History allopurinol 300 mg tablet 300 mg PO QPM 03/30/25 03/30/25 History astaxanthin 12 mg capsule 10 mg PO DAILY 03/30/25 03/30/25 History levothyroxine 150 mcg tablet 150 mcg PO QAM 03/30/25 03/30/25 History Past Med/Surg History Problem List (Updated 04/27/25 @ 20:53 by Cullen Lopes MD) History of hemiarthroplasty of left shoulder Tendinopathy of left rotator cuff Chronic shoulder pain Encounter for pre-operative examination Seasonal allergies Arthritis of right shoulder region Hypothyroidism GERD (gastroesophageal reflux disease) Sleep apnea CPAP - INSTRUCTED TO BRING DJD of left shoulder Medical History GERD (gastroesophageal reflux disease) well controlled and stable Seasonal allergies Hypothyroidism Sleep apnea CPAP History of GI bleed (2022) hospitalized x 5 days, [facility] [place] Morbid obesity Gout History of Osteoarthritis Surgical History History of reverse total replacement of right shoulder joint Hx of esophagogastroduodenoscopy Hx of tonsillectomy History of arthroscopy of left shoulder Hx of appendectomy History of arthroplasty of left shoulder PARTIAL REPLACEMENT 2015 Social History Smoking Status: Never smoker Second Hand Exposure: No; Do You Dip or Chew Tobacco: No; Tobacco Cessation Education Requested by Patient: No Hx Alcohol Use: No Hx Substance Use: No Preferred Language: Georgian Communication Ability: Effective Adapted Physical Education Specialist Required: No Beliefs That Will Affect Care: None marital status: Current Living Situation: Spouse Other Information That Helps Us Care for You: No Feels Safe at Home: Yes Safety Concerns: Feels Safe At This Time Assistive Devices: CPAP and Glasses Review of Systems All systems reviewed & are unremarkable except as noted in HPI & below Physical Exam Constitutional: WD/WN, vitals as above Respiratory: normal respiratory effort; no respiratory distress Cardiovascular: Rate/Rhythm: regular rate and regular rhythm Musculoskeletal: Active and passive painful range of motion left shoulder with 120 degrees flexion 80 degrees abduction and 30 degrees external rotation 40 degrees internal rotation internal rotation to S1 and external rotation strength 5+/5 internal rotation strength 4+/5 shoulder abduction 3+ to 4-/5. Distal circulation sensory motor exam intact. Skin: no rashes, warm and dry Neurologic: normal touch/pain/proprioception Psychiatric: A+Ox3, euthymic affect Results & Data Diagnostic Findings Left shoulder x-rays demonstrate resurfacing hemiarthroplasty which is well- fixed in the humerus. Superior migration of the humerus with some superior glenoid bone loss. Osteophytes inferior humeral neck that are abutting against osteophytes on the inferior glenoid with [id number] contact. There is a narrowed acromiohumeral interval which would be concerning for rotator cuff tear or advanced tendinopathy. Implant is centered on axillary view.
[~2025-04-28 09:13] MED LIST changes: -ACETAMINOPHEN 500 MG TAB PO SCH; +BUPIVACAINE 0.5 % 5 MG/1 ML PF 10ML VIAL ONE; -BUPIVACAINE/EPINEPHRINE 0.25% 1:200,000 30 ML VIAL ONE; -CEFAZOLIN 3000MG 72.5 ML IV SCH; -CeleBREX 200 MG CAP PO SCH; -FAMOTIDINE 20 MG TAB PO SCH; -GABAPENTIN 900 MG DOSE PO SCH; -LR 15ML/HR IV SCH; -METOCLOPRAMIDE HCL 10 MG TABLET PO SCH; -MIDAZOLAM HCL 1 MG/ML 2ML VIAL ONE; -dexAMETHasone 4 MG TAB PO SCH; -fentaNYL citrate 100 MCG/2 ML VIAL ONE
[2025-04-28] MEDS: ACETAMINOPHEN 500 MG TAB PO SCH (09:38)
[2025-04-28] MEDS: FAMOTIDINE 20 MG TAB PO SCH (09:38)
[2025-04-28] MEDS: GABAPENTIN 600 MG DOSE PO SCH (09:38)
[2025-04-28] MEDS: CeleBREX 200 MG CAP PO SCH (09:38)
[2025-04-28] MEDS: METOCLOPRAMIDE HCL 10 MG TABLET PO SCH (09:39)
[2025-04-28] MEDS: LR 60ML/HR IV SCH (09:40)
[2025-04-28] MEDS: VANCOMYCIN HCL 2,000 MG in SODIUM CHLORIDE 0.9% 500 ML IV SCH ×2 (09:40→20:39)
[2025-04-28] MEDS: dexAMETHasone**PF** 10 MG/ML VIAL IV SCH (09:40)
--- NOTE | 2025-04-28 10:14 | History & Physical Bridge Note ---
Date of Service April 28, 2025 History & Physical Bridge Note I have examined the patient, reviewed the History & Physical and in the interval since the performance of the History & Physical I have noted the following changes of clinical significance: no changes noted
[2025-04-28] MEDS ORDERED: MIDAZOLAM HCL 1 MG/ML 2ML VIAL ONE (11:10)
[2025-04-28] MEDS ORDERED: ROCURONIUM BROMIDE 10 MG/ML 5 ML VIAL IV ONE ×3 (11:12→14:45)
[2025-04-28] MEDS ORDERED: LIDOCAINE 2% 2 ML VIAL/AMP(20MG/ML) INFIL ONE (11:12)
[2025-04-28] MEDS ORDERED: PROPOFOL IV EMULSION 10 MG/ML 20 ML VIAL IV ONE ×2 (11:12→13:39)
[2025-04-28] MEDS ORDERED: ATROPINE SULFATE 0.1 MG/ML 10ML SYR IV PRN (12:15)
[2025-04-28] MEDS ORDERED: ONDANSETRON INJ 2 MG/ML 2 ML VIAL IV PRN ×2 (12:15→19:58)
[2025-04-28] MEDS: TRANEXAMIC ACID 1,000 MG **IV Pre-op IV SCH (12:35)
[2025-04-28] MEDS ORDERED: ePHEDrine sulfate 50 MG/5 ML SYR ONE (14:09)
[2025-04-28] MEDS: ceFAZolin 3000MG 3,000 MG/72.5 ML BAG IV SCH (14:32)
[2025-04-28] MEDS ORDERED: ONDANSETRON INJ 2 MG/ML 2 ML VIAL ONE (15:04)
[2025-04-28] MEDS ORDERED: DEXAMETHASONE SOD INJ 4 MG/ML VIAL ONE (15:04)
[2025-04-28] MEDS ORDERED: SUGAMMADEX SODIUM 200 MG/2 ML VIAL IV ONE (15:04)
[2025-04-28] MEDS ORDERED: ceFAZolin 330 MG/ML 1 GM VIAL ONE (17:43)
[2025-04-28] MEDS: ceFAZolin 3000MG 3,000 MG/72.5 ML BAG IV ONE (17:53)
[2025-04-28] MEDS ORDERED: KETOROLAC 30 MG/ML VIAL ONE (18:28)
[2025-04-28] MEDS ORDERED: HYDROmorphone INJ 2 MG/ML SYR/VIAL ONE (18:31)
--- NOTE | 2025-04-28 19:03 | Operative Report ---
Post Operative Report Pre & Post Diagnosis Operation Date: 04/28/25 12:20 Pre-Op Diagnosis: 1. Chronic left shoulder pain, 2. Tendinopathy of left rotator cuff, 3. 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 4. Obesity BMI 41.6 Post-Op Diagnosis: 1. Chronic left shoulder pain, 2. Tendinopathy of left rotator cuff, chronic full-thickness rotator cuff tear supraspinatus and anterior infraspinatus 3. 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 Biceps tendinopathy 5. Obesity BMI 41.6 I identified the patient and participated in the time-out.: Yes Procedure Operation Date: 04/28/25 12:20 Actual Procedures p Left Shoulder revision of a resurfacing hemiarthroplasty to a reversed Total Shoulder Arthroplasty requiring a vault reconstruction system glenoid reconstruction and biceps tenodesis. Some level of increased difficulty due to obesity BMI 41.6- Cullen Lopes MD Surgeon Cullen Lopes MD Yacht Rigger Brayan HILL Estimated Blood Loss 125 Findings Consistent with Post-Op Diagnosis Specimens Humeral implant with attached bone. Drains 2 Hemovac Anesthesia Type General Regional Complications none Disposition Disposition: Recovery Room Indications 59-year-old male with chronic progressive glenoid bone loss after hemiarthroplasty with posterior superior translation of the humeral component with substantial medialization requiring vault reconstruction system due to extensive posterior superior bone loss. Description of Procedure Patient was anesthetized under regional block and general anesthetic. He was then positioned in the beachchair position at about a 40 degree beachchair p osition with his head on a foam headrest to protective eyewear and had a towel roll under the medial border of his left scapula he was translated left side of bed so his shoulder to be manipulated off the bed as necessary. Patient did have obesity abdominal and upper chest shoulder area. Lower extremities had SCDs were all well-padded. Shoulder exam demonstrated he had limited range of motion with 115 degrees flexion and 15 degrees internal and external rotation. Abduction was 70 degrees. Patient had an old widened scar in the deltopectoral interval. His left shoulder was sterilely prepped and draped with ChloraPrep . An incision was made through his old scar extended slightly distally. Skin incised sharply and subcutaneous flaps were elevated off the fascia. There was a small not well-developed cephalic vein that coursed more laterally so we did have to tie it off as it coursed across the incisional area. Deltopectoral interval was dissected down to the conjoined tendon which had scar tissue overlying it. Conjoined tendon was intact. The shoulder had an internal rotation contracture so there was dense scar tissue over the subscapularis repair which was still intact but not normal subscapularis tissue. Had to free up the deltoid off the greater tuberosity and underlying rotator cuff. There was scar tissue superiorly and chronic supraspinatus and anterior for space tendon tear with intact teres minor and osteophytes around the superior greater tuberosity. There was tenosynovitis around the biceps. The upper centimeter of the pectoralis was released for inferior exposure. The biceps tendon was followed up into the joint and the transverse ligament was released and the subscapularis was released into the bicipital groove and down the rotator interval area. Superior scar tissue was resected. The biceps was tenodesed to the pectoralis tendon with a #2 FiberWire suture using a [id number] and a whipstitch type suture. The proximal biceps was resected. A subperiosteal peel was performed. Incision was carried down to the old subscapularis repair and old sutures which were removed. We did place a traction suture in the subscapularis. The shoulder was gradually externally rotated as we released the inferior capsule staying on bone. Blunt Hohmann retractor was placed inferiorly to protect the axillary nerve. There were large osteophytes on the neck of the humerus below the resurfacing implant that were impinging on the large osteophytes on the glenoid. The osteophytes were removed with an artist chisel and a rongeur. The capsule was released off the neck inferiorly and at this point were able to dislocate the shoulder. Retractors were readjusted to expose the humeral head. A provisional neck cut was made to remove the implant cutting below the implant and 20 degrees of retroversion. Implant was not removed with a section of bone. There appeared to be no loosening of the implant which appeared to have bone ingrowth into the bone. The Biomet micro stems were first utilized. Reamers were used followed by broaches up to a 11 stem. There is a little bit of a fragmentation of the posterior cortex noted so I thought we sh ould use a mini stem which was 83 mm long for more support. Broaches up to an 11 were performed followed by cut protector. Retractors were placed to expose the glenoid. Remnants of the biceps were resected labrum and the releases were performed. Careful releases were performed starting on the anterior glenoid using both electrocautery and a small and large Dubon elevator to strip periosteum off the anterior glenoid and then we placed a Bankart type retractors there and then worked our way inferiorly to do the inferior releases and released the triceps tendon inferiorly. Then she worked her way around the back releasing the posterior capsule completely. Glenoid itself had large spurs anteriorly and inferiorly and a markedly posterior sloped glenoid due to bone loss with the bone loss all way back to the spine of the scapula. The fibrinous material on the glenoid was removed and the surface was curetted and debrided with rongeur so we had a complete bony surface for placement of the implant. Exposure was still too tight for us to get the implant in place appropriately so I had to revise the humeral cut removing 3 to 4 mm of bone off the humerus we broaching the humerus again placing a trial back in and cut protector and then reexposed and the glenoid. After irrigation with pulsatile lavage saline we were able to get the custom VRS vault reconstruction glenoid baseplate into position. There was a locking lip that fit over the anterior glenoid superior cortex just under the coracoid and the VRS was impacted down to the bone with stable fixation and then transfixed with 2 drill bits first and then we drilled the central screw area. A 40 x 6.5 mm central screw was placed with good fixation. Then sequentially the for additional locking screws were placed all with excellent fixation in the bone. We used 2 ,30 mm locking screws and 2, 40 mm locking screws. The anterior rim of the glenoid was trimmed back so there would be no impingement with the glenoid sphere. Then we trialed glenoid sphere and a 40 standard with the offset anterior-inferior was the best choice and the high offset tray +6 with a 40 reversed insert. There was excellent range of motion no shuck and good stability. The trials were removed from the VRS and the wound was irrigated. Retractors were readjusted and then the area of the Lucero taper insertion was dried. The 40 standard glenoid sphere with the offset anterior inferior was placed onto the baseplate impacted into position with stable fixation checked with a Dubon for stability. The humeral trial implant was removed the canal was irrigated with post lavage saline solution then the 11 mm mini stem was impacted adding some bone graft from the humeral head bone below the implant that was removed impacted around the implant to help with tighter press-fit fixation. There was excellent press-fit fixation of the 11 mini stem. The 40+6 tray with a 40 standard reversed polyethylene insert bearing was assembled and impacted into the stem with stable fixation of the Lucero taper. The humerus was reduced to the glenoid sphere and we assessed range of motion which was stable through full range of motion. Patient had approximately 75 degrees of internal and external rotation and 90 degrees of abduction and forward flexion to 140 degrees. The pectoralis was repaired with [id number] #2 FiberWire suture placing the suture back to the biceps tendon to reinforce biceps tenodesis. The wound was irrigated with Xperience solution. 2 Hemovac drains were placed deep and then the deltopectoral interval was repaired with them 2 [id number] Vicryl sutures the subcutaneous tissues were repaired with 2-0 Vicryl sutures and the skin was closed with surgical raine and a Silverlon dressing was applied. rBayan HILL is my sales operations assistant and functioned as sales operations assistant with all aspects of the procedure including positioning prepping draping soft tissue retraction instrument management wound closure and postoperative care. There was increased level difficulty due to his obesity and large size which added least an hour to the length of the surgery. Im ordering collagen sheets as a primary dressing and bordered super absorbent for secondary dressings for the wound resulting from this surgery. Collagen is being utilized to encourage the growth of blood vessels and granulation tissue. The collagen will also speed up the wound healing process, increase skin tensile strength at the surgery site and lessen the chance of a wound dehiscence, help prevent infection, and reduce the appearance of scarring. The silicone secondary dressings will protect the wound and help keep it clean and minimize that chances for infection. I believe that this treatment protocol is medically necessary to help facilitate the best outcome possible for my patient. I attest to the content of the Intraoperative Record and any orders documented therein. Any exceptions are noted below.
--- NOTE | 2025-04-28 19:25 | XRay Report ---
2 views of the left shoulder are submitted for review. Findings: No fracture is seen. There is a left glenohumeral arthroplasty. There is mild acromioclavicular osteoarthritis. No other osseous abnormality is identified. There are surgical skin raine. A surgical drain is present Impression: 1. Left shoulder replacement 2. Mild acromioclavicular osteoarthritis Electronically signed by Sergio Dubon 04-28-2025 7:24 PM
--- NOTE | 2025-04-28 19:38 | Anesthesiology Progress Note ---
Date of Service April 28, 2025 Anesthesia Post Procedure Vital Signs Vital Signs: Temp Pulse Pulse Resp BP Pulse Ox O2 Del Method 04/28/25 19:35 96 H 15 113/76 93 Nasal Cannula 04/28/25 19:25 36.5 C 93 H 20 127/78 92 Nasal Cannula 04/28/25 19:15 89 17 120/80 92 Oxymask 04/28/25 19:05 96 H 20 128/90 92 Oxymask 04/28/25 18:55 36.2 C L 108 H 25 H 137/92 90 Oxymask 04/28/25 09:26 36.8 C 74 20 180/109 H 95 Room Air O2 Flow Rate 04/28/25 19:35 4 04/28/25 19:25 4 04/28/25 19:15 5 04/28/25 19:05 5 04/28/25 18:55 5 04/28/25 09:26 Pain Intensity Left Shoulder: Pain Intensity: 3 Transfer of Care Handoff Completed per policy Notes Mental Status: alert / awake / arousable Patient Amnestic to Procedure: Yes Nausea / Vomiting: adequately controlled Pain: adequately controlled Airway Patency, RR, SpO2: stable & adequate BP & HR: stable & adequate Hydration State: stable & adequate Anesthetic Complications: no major complications apparent and Pt Satisfied with anesthetic care
[2025-04-28] MEDS ORDERED: ALUMINUM/MAGNESIUM SUSP 30 ML UDC PO PRN (19:58)
[2025-04-28] MEDS ORDERED: KETOROLAC TROMETHAMINE 15 MG/ML VIAL IV PRN (19:58)
[2025-04-28] MEDS ORDERED: VANCOMYCIN CONSULT ACTIVE PRN (19:58)
[2025-04-28] MEDS ORDERED: MAGNESIUM HYDROXIDE SUSP 30 ML UDC PO PRN (19:58)
[2025-04-28] MEDS ORDERED: METOCLOPRAMIDE HCL INJ 5 MG/ML 2 ML VIAL IV PRN (19:58)
[2025-04-28] MEDS ORDERED: diphenhydrAMINE Capsule 25 MG CAP PO PRN (19:58)
[2025-04-28] MEDS ORDERED: HYDROmorphone INJ 0.5 MG/0.5 ML SYR IV PRN (19:58)
[2025-04-28] MEDS ORDERED: HYDROCODONE/ACETAMOPHEN 5/325MG TAB PO PRN (19:58)
[2025-04-28] MEDS ORDERED: NALOXONE HCL 0.4 MG/1 ML VIAL/CARP IV PRN (19:58)
[2025-04-28] MEDS: SODIUM CHLORIDE 0.9% 1,000 ML IV SCH (20:39)
[2025-04-28] MEDS: DOCUSATE SODIUM 100 MG CAP PO SCH (20:40)
[2025-04-28] MEDS: SENNA 8.6 MG TAB PO SCH (20:40)
[2025-04-28] MEDS: ASPIRIN 81 MG ECTAB PO SCH (20:40)
[2025-04-28] MEDS: TRANEXAMIC ACID / 0.7% NACL 1,000 MG/100 ML BAG IV SCH (22:45)
[2025-04-29 04:22] VITALS: O2SAT 94
[2025-04-29 05:34] VITALS: RESP 18
[2025-04-29] MEDS: LEVOTHYROXINE SODIUM 150 MCG TABLET PO SCH (06:00)
[2025-04-29] MEDS: BUPIVACAINE LIPOSOME 1.3% 133 MG/10 ML VIAL ONE (06:20)
[2025-04-29 07:29] LABS: Hematocrit (blood only) 39.6 % (42.0-52.0); Hemoglobin 13.0 g/dl (14.0-18.0); Immature Granulocytes # (auto) 0.06 K/uL (0.01-0.20); Immature Granulocytes % (auto) 0.4 %; Mean Corpuscular Hemoglobin 29.6 pg (25.0-34.0); Mean Corpuscular Volume 90.2 fL (80.0-100.0); Platelet Count 210 K/uL (130-400); RDW Standard Deviation 45.7 fL (36.4-46.3); Red Blood Count 4.39 M/uL (4.70-6.10); White Blood Count 14.00 K/ul (4.8-10.8)
[2025-04-29 07:45] VITALS: BP 105/68; PULSE 76; TEMP 98.2
[2025-04-29 07:50] LABS: Anion Gap 7.0 (3-11); Blood Urea Nitrogen 17.0 mg/dl (6-23); Calcium 8.1 mg/dl (8.6-10.3); Carbon Dioxide 27.0 mmol/L (21-32); Chloride 105.0 mmol/L (98-107); Creatinine Clr Calc Pharmacy 142.5 ml/min; Glucose 123.0 mg/dl (70-99(Fasting)); Potassium 4.3 mmol/L (3.5-5.1); Sodium 139.0 mmol/L (136-145)
[2025-04-29] MEDS: CALCIUM 600MG + VIT D 400 IU TAB PO SCH (07:57)
[2025-04-29] MEDS: CETIRIZINE HCL 10 MG TABLET PO SCH (07:57)
[2025-04-29] MEDS: MULTIVITAMIN TAB PO SCH (07:58)
[2025-04-29] MEDS: dexAMETHasone 10 MG in SYRINGE 0 ML IV SCH (07:58)
--- NOTE | 2025-04-29 08:12 | Orthopedic Progress Note ---
Date of Service April 29, 2025 Assessment & Plan (1) Chronic shoulder pain: Plan: Postop day 1 revision of a resurfacing hemiarthroplasty to reverse total shoulder replacement with vault reconstruction. Patient doing satisfactorily. Discussed activity precautions and we will just do home exercises and not start formal PT yet. Use sling for support. Drain can be DC'd prior to discharge. Follow-up in 2 weeks for staple removal. chronic left shoulder pain related to bone erosion and rotator cuff tendinopathy status post resurfacing hemiarthroplasty. Plan is revision to a reverse total shoulder replacement. Preoperative CT scan demonstrated too much bone loss even for augmented glenoid component of standard system so a vault reconstruction system with custom implant was made based on repeat CT scan. (2) Tendinopathy of left rotator cuff: (3) History of hemiarthroplasty of left shoulder: Admission and Anticipated Discharge Date Admission Date: April 28, 2025 Subjective Summary nerve block has worn off but still numb. Review of Systems Review of Systems: Feels well no complaints Physical Exam Musculoskeletal: Still some weakness with extension but can flex fingers well and circulation normal and dressing intact. Results & Data Vital Signs (Past 12 Hours) Vital Signs Temp Pulse Resp BP Pulse Ox O2 Del Method O2 Flow Rate 04/29/25 07:45 36.8 C 76 18 105/68 94 Room Air 04/29/25 04:28 36.4 C L 74 18 108/69 94 CPAP 04/29/25 04:00 36.6 C 72 19 109/70 94 Room Air 04/28/25 23:28 36.5 C 87 16 100/66 92 CPAP 04/28/25 22:28 36.8 C 88 16 113/75 93 Nasal Cannula 2 04/28/25 21:28 36.4 C L 93 H 16 111/73 94 Nasal Cannula 2 04/28/25 21:00 Nasal Cannula 2 04/28/25 21:00 36.8 C 97 H 20 114/78 93 Nasal Cannula 2 04/28/25 20:58 36.8 C 98 H 16 112/73 92 Nasal Cannula 2 04/28/25 20:28 36.5 C 92 H 16 114/72 93 Nasal Cannula 2 Diagnostic Findings Satisfactory alignment reverse total shoulder replacement with vault reconstruction glenoid component (1) Chronic shoulder pain Laterality: left Qualified Code(s): M25.512 - Pain in left shoulder; G89.29 - Other chronic pain
[2025-04-29] MEDS ORDERED: ASTAXANTHIN 12 MG PO SCH (09:00)
[2025-04-29] MEDS ORDERED: [UNRECOGNIZED DRUG - OTHER] PO SCH (09:00)
[2025-04-29] MEDS ORDERED: VANCOMYCIN HCL 2,000 MG in SODIUM CHLORIDE 0.9% 500 ML IV SCH (21:00)
== END 2025-04-29 11:45 | disposition home or self-care (01) ==
LOC: 3W 09:13 → ASU 09:13